=== PATIENT | male | born 1975 | race Caucasian/White ===

== ENCOUNTER 2019-03-18 17:38 | Emergency (ER) | payer SELFPAY ==
[~2019-03-18] VITALS: Ht 160 cm; Wt 62.0 kg
[2019-03-18 18:34] VITALS: BP 151/74
== END 2019-03-18 23:42 | disposition left against medical advice (07) ==
LOC: ER 17:38
DX: R10.9 Unspecified abdominal pain (principal); Z53.21 Procedure and treatment not carried out due to patient leaving prior to being seen by health care provider